=== PATIENT | female | born 1995 | race African-American/Black ===

== ENCOUNTER 2025-03-16 20:08 | Emergency (ER) | payer BC, SELFPAY ==
[2025-03-16 20:14] VITALS: BP 130/90
[2025-03-16 20:38] VITALS: BMI 32.1
[2025-03-16 20:50] VITALS: BP 132/94
[2025-03-16 21:00] VITALS: BP 136/93
[2025-03-16 21:05] LABS: Hematocrit 40.4 % (37.0-47.0); Hemoglobin 13.7 g/dL (12.0-16.0); Mean Corp Hgb Conc. 33.9 g/dL (33.0-37.0); Mean Corpuscular Volume 89.0 fL (81.0-99.0); Nucleated Red Blood Cells % 0 %; Platelet Count 318 10^3/uL (130-400); Red Cell Dist. Width 13.8 % (11.5-14.5)
[2025-03-16 21:19] LABS: HCG, Serum Qualitative Screen Negative
[2025-03-16 21:30] LABS: ALT (SGPT) 31 U/L (0-35); AST (SGOT) 20 U/L (14-36); Albumin 4.9 g/dl (3.5-5.0); Alkaline Phosphatase 49 U/L (38-126); Blood Urea Nitrogen 15 mg/dl (7-17); Calcium 9.5 mg/dl (8.4-10.2); Carbon Dioxide 21 mmol/L (22-30); Chloride 105 mmol/L (98-107); Estimated Creatinine Clearance 111 ml/min; Glucose 115 mg/dl (70-99); Potassium 4.3 mmol/L (3.5-5.1); Sodium 137 mmol/L (135-145); Total Protein 8.1 g/dl (6.3-8.2); eGFR > 60.00
[2025-03-16] MEDS: ZOFRAN 4 MG IV (21:37)
[2025-03-16] MEDS: NSS 1000 IV (21:37)
[2025-03-16] MEDS: TORADOL 15 MG IV (21:37)
[2025-03-16 21:58] LABS: Lipase 134 U/L (23-300)
[2025-03-16 22:00] VITALS: BP 110/81
--- NOTE | 2025-03-16 22:59 | ED.GENMED ---
History of Present Illness
General
Chief Complaint: Abdominal Symptoms
Source: patient and significant other
Time Seen by Provider: 03/16/25 21:05
History of Present Illness
History of Present Illness:
Note:
CHIEF COMPLAINT(S)
Vomiting and abdominal discomfort.
HISTORY OF PRESENT ILLNESS
The patient is a 29-year-old female who presents with symptoms of vomiting and abdominal discomfort, which began earlier this week, approximately a week ago. The symptoms have worsened towards the end of the week. The patient recently started on
semaglutide (Wegovy) for the management of elevated hemoglobin A1C. She reports experiencing nausea and vomiting, typical side effects associated with semaglutide, which has persisted despite using the bathroom or vomiting. The patient describes the
pain as concentrated in the upper abdominal region. She denies alcohol consumption.
The healthcare team raised the possibility that the symptoms might be related to semaglutide, especially since side effects can occur when starting the medication or changing the dosage. There is also consideration of mild pancreatitis associated
with the medication. 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
PAST MEDICAL AND SURGICAL HISTORY
History of splenectomy.
EXTERNAL RECORDS REVIEWED
Hemoglobin A1C was noted to be elevated.
CHRONIC MEDICAL CONDITIONS SIGNIFICANTLY AFFECTING CARE
Elevated hemoglobin A1C.
PHYSICAL EXAM
General: Alert, no acute distress.
Skin: Warm, dry.
Head: Normocephalic, atraumatic.
Neck: Supple, trachea midline.
Eye Ears, nose, mouth, and throat: Oral mucosa moist.
Cardiovascular: Heart regular without murmur, normal peripheral perfusion, no edema.
Respiratory: Respirations are non-labored.
Gastrointestinal: Moderate epigastric tenderness, abdomen soft, non-tender.
Back: Normal range of motion, normal alignment.
Musculoskeletal: Normal ROM, normal strength.
Neurological: Alert and oriented to person, place, time, and situation, no focal neurological deficit observed.
Psychiatric: Cooperative, appropriate mood & affect.
PROBLEM LIST
Acute Problems:
- Vomiting and abdominal discomfort possibly related to semaglutide use
Chronic Problems:
- Elevated hemoglobin A1C
PLAN
- Investigate for possible mild pancreatitis due to semaglutide use by obtaining relevant laboratory tests, including pancreatic enzymes.
- Manage symptoms with analgesics such as morphine for pain relief as needed; monitor for effectiveness and adjust treatment if necessary.
- Administer antiemetic medication for nausea.
- Continue monitoring the patients condition and response to medications.
DIFFERENTIAL DIAGNOSIS
The Differential Diagnosis includes, in no particular order and is not limited to:
1. Medication-induced gastrointestinal upset (related to semaglutide)
2. Mild pancreatitis
3. Gastroenteritis
4. Gastritis
5. Peptic ulcer disease
6. Non-ulcer dyspepsia
7. Hepatitis
8. Biliary colic (though patient lacks gallbladder)
9. Intestinal obstruction
10. Enteritis/Colitis
Disposition:
SUMMARY OF ENCOUNTER
The patient is a 29-year-old female on semaglutide, a GLP-1 receptor agonist, who presented with upper abdominal discomfort persisting for several days. Laboratory tests conducted in the emergency department, including CBC, chemistry panel, liver
function tests, and lipase, were all normal. A test was negative. The patient has a history of cholecystectomy and appendectomy. She reported feeling somewhat better following the administration of intravenous ketorolac and intravenous
fluids. I suspect her symptoms are related to semaglutide use. After discussion, the patient expressed her decision to discontinue semaglutide due to intolerance. It was recommended that she follow up with her primary care provider (PCP).
ASSESSMENT
Symptoms are likely due to semaglutide use. The patient has decided to discontinue the medication.
EMERGENCY TREATMENTS ADMINISTERED
IV ketorolac and IV fluids were administered.
PLAN
Initiate proton pump inhibitor (PPI) therapy and sucralfate 4 times daily. Advise the patient to follow up with her primary care provider.
INDEPENDENT REVIEW OF LABS AND INTERPRETATION OF TESTS
My independent review of CBC is normal. My independent review of chemistry panel is normal. My independent review of liver function tests is normal. My independent review of lipase is normal. My independent review of the test is negative.
PATIENT EDUCATION AND COUNSELING
The patient was informed about the possible side effects of semaglutide and reasons for discontinuing it. She was counseled on the importance of following up with her primary care provider for further management.
FOLLOW-UP INSTRUCTIONS
Patient was advised to schedule a follow-up visit with her primary care provider.
MEDICATION RECONCILIATION
Initiated PPI therapy and prescribed sucralfate to be taken four times daily.
MEDICAL DECISION MAKING
- Number and Complexity of Problems Addressed: Chronic conditions affecting care include the use of a GLP-1 receptor agonist leading to possible medication-induced gastrointestinal upset. Differential diagnoses considered included medication-induced
gastrointestinal upset (related to semaglutide), mild pancreatitis, gastroenteritis, gastritis, peptic ulcer disease, non-ulcer dyspepsia, hepatitis, biliary colic, intestinal obstruction, and enteritis/colitis.
- Data:
- Category 1: Reviewed non-emergency department records. External records reviewed indicate previous elevated hemoglobin A1C.
- Category 2: My independent interpretation of laboratory tests indicated normal results.
- Category 3: Discussions conducted with the patient regarding discontinuing semaglutide and follow-up with primary care.
- Risk: Prescription medication management involving discontinuation of semaglutide and initiation of alternative therapies. Consideration of Admission/Observation: Escalation of care including admission/observation was considered given the
complexity and risk of the patients presenting complaint, exam findings, and/or underlying comorbidities. However, ultimately I feel the patient is safe for outpatient management with close follow-up. Reasoning: Work-up reassuring, does not reveal
any acute life/organ-threatening processes, patients symptoms well-controlled upon reevaluation, reexamination is reassuring, vitals are stable, patient agreeable with discharge, reliable for follow-up.
DIAGNOSIS
Drug-induced gastric irritation due to semaglutide use (ICD-10 code: T50.905A - Adverse effect of unspecified drugs/medications, initial encounter).
Phy Exam
Physical Exam
Physical Exam:
.
Course
Orders/Labs/Results
Orders:
Orders
03/16/25 20:56
Complete Blood Count/With Diff Urgent
Comprehensive Metabolic Panel Urgent
HCG, Serum Qualitative Screen Urgent
Comment: ADDON
Lipase Urgent
Comment: ADDON
03/16/25 21:03
Add On- LAB Urgent
Tests Added?: HCG Qualitative
03/16/25 21:33
0.9% Sodium Chloride 1000 ml [Nss] 1,000 ml IV BOLUS
Ketorolac [Toradol] 15 mg IV NOW STA
Ondansetron Injectable [Zofran] 4 mg IV NOW STA
03/16/25 21:45
Add On- LAB Urgent
Tests Added?: lipase
03/16/25 22:58
Pantoprazole [Protonix IV] 80 mg IV NOW STA
Sucralfate Suspension [Carafate Suspension] 1 gm PO NOW STA
Abnormal Lab Results
03/16/25
20:56
Abs Immat Gran (auto) 0.1 H 10^3/uL
(0-0.05)
Absolute Neuts (auto) 7.5 H 10^3/uL
(1.4-6.5)
Carbon Dioxide 21 L mmol/L
(22-30)
Glucose 115 H mg/dl
(70-99)
03/16/25 20:56
03/16/25 20:56
Vital Signs
Initial and Last Documented VS:
Initial Vital Signs
Temp Pulse Resp BP Pulse Ox
97.9 F 74 20 130/90 98
03/16/25 20:14 03/16/25 20:14 03/16/25 20:14 03/16/25 20:14 03/16/25 20:14
Last Documented Vital Signs
Temp Pulse Resp BP Pulse Ox
97.9 F 91 18 110/81 96
03/16/25 20:14 03/16/25 22:45 03/16/25 22:45 03/16/25 22:00 03/16/25 22:45
*Pulse Oximetry
SaO2: 96
Oxygen Mode of Delivery: Room air
Patient hypoxic: no
*Critical Care Note
Total Time (30-74mins, 75-104mins- exclusive of procedures): Not Applicable
ED Attending Note
-
Portions of this chart may have been created with voice recognition software.� Occasional wrong word or��sound alike� substitutions may have occurred due to the inherent limitations of voice recognition software.
Discharge Plan
Departure
Patient Disposition: Home (Routine Discharge)
Date of Disposition: 03/16/25
Time of Disposition: 22:59
Patient with high blood pressure during this ER visit?: No
Discharge Problem:
Abdominal pain
Instructions: Abdominal Pain
Prescriptions:
New
sucralfate 100 mg/mL suspension
1 g PO QID Qty: 400 0RF
Rx Instructions:
Take 1 hour before each meal and 1 hour before bedtime
pantoprazole [Protonix] 40 mg tablet,delayed release (DR/EC)
40 mg PO DAILY Qty: 30 0RF
Rx Instructions:
Please take 30 minutes prior to eating or drinking anything in the morning.
Referrals:
NONE,* [Family Provider, Internal Medicine]
Activity Restrictions/Additional Instructions:
Suspected side effect of Wegovy
Please drink plenty fluids and keep the diet bland. Advance diet slowly as you feel better. Please see your doctor next 3 to 5 days for follow-up and reevaluation.
Interventions
Interventions:
*Risk Screen - Suicide Last Done: 03/16/25 20:14
*General Assessment Last Done: 03/16/25 20:39
*Neglect/Abuse Screening Last Done: 03/16/25 20:14
*ED COVID-19 Vaccine History Last Done: 03/16/25 20:39
*ED Influenza Vaccine History Last Done: 03/16/25 20:39
[facility] Fall Risk Assessment Tool Last Done: 03/16/25 20:39
ST-Gmljtq-Isdnkfgnda Assessment Last Done: 03/16/25 20:41
Discharge Date and Time
Print Language: BAHRAINI
[2025-03-16 23:00] VITALS: BP 108/81
[2025-03-16] MEDS: PROTONIX IV 80 MG IV (23:15)
[2025-03-16] MEDS: CARAFATE SUSPENSION 1 GM PO (23:16)
== END 2025-03-16 23:41 | disposition home or self-care (01) ==
LOC: EMR 20:08
PROVIDERS: Student in an Organized Health Care Education/Training Program; EMERGENCY PHYSICIAN Emergency Medicine
DX: R10.9 Unspecified abdominal pain (principal); R11.2 Nausea with vomiting, unspecified; Z79.899 Other long term (current) drug therapy; Z90.81 Acquired absence of spleen
CPT/HCPCS: 99283; 96374; 96375; 96361; 80053; 83690; 84703; 85025

== ENCOUNTER 2025-03-24 12:11 | Emergency (ER) | payer BC, SELFPAY ==
[2025-03-24 12:18] VITALS: BP 125/85
[2025-03-24 12:44] LABS: Hematocrit 37.7 % (37.0-47.0); Hemoglobin 13.0 g/dL (12.0-16.0); Mean Corp Hgb Conc. 34.5 g/dL (33.0-37.0); Mean Corpuscular Volume 87.5 fL (81.0-99.0); Nucleated Red Blood Cells % 0 %; Platelet Count 294 10^3/uL (130-400); Red Cell Dist. Width 13.8 % (11.5-14.5)
[2025-03-24 12:58] LABS: ALT (SGPT) 26 U/L (0-35); AST (SGOT) 19 U/L (14-36); Albumin 4.5 g/dl (3.5-5.0); Alkaline Phosphatase 45 U/L (38-126); Blood Urea Nitrogen 17 mg/dl (7-17); Calcium 9.4 mg/dl (8.4-10.2); Carbon Dioxide 21 mmol/L (22-30); Chloride 106 mmol/L (98-107); Glucose 117 mg/dl (70-99); Lipase 223 U/L (23-300); Potassium 3.8 mmol/L (3.5-5.1); Sodium 138 mmol/L (135-145); Total Protein 7.2 g/dl (6.3-8.2); eGFR > 60.00
--- NOTE | 2025-03-24 15:54 | ED.GENMED ---
History of Present Illness
General
Chief Complaint: Abdominal Pain
Source: patient
Time Seen by Provider: 03/24/25 15:35
History of Present Illness
History of Present Illness:
Patient is a 29-year-old female presents emergency department with complaints of nausea vomiting diarrhea and abdominal pain this has been on admission for 1 week. She attributes her symptoms to her starting a Wegovy which she discontinued
understanding. She denies blood in her stool or vomiting, fever, chills, recent antibiotics, recent travel, sick contacts, chest pain, shortness of breath. Patient denies history of this in the past, she has never had an endoscopy colonoscopy.
She describes the discomfort as in the epigastric area sometimes it is associated with what she thinks appears to be mild swelling. Pain 'comes and weeks' and travels to bilateral upper quadrants. Feels better with warm compresses, no particular
exacerbating factors. Pain is typically 'dull and tolerable', but then becomes severe. She denies chest pain, dyspnea, urinary symptoms, or other complaints. Patient was seen here in the emergency department and had a workup. She returned the
emergency department because her symptoms did not.
Past History
Past History
ED Past Medical History: Other (Prediabetes)
ED Past Surgical History: Appendectomy and Cholecystectomy
Social History
Tobacco: Non-smoker
Alcohol: None
Drug: None
Personal:
Living: with family
Phy Exam
Physical Exam
Physical Exam:
GENERAL: Alert , in no apparent distress
EYE: pupils equal and reactive
NECK: Supple, no significant adenopathy.
ENT: o/p clr, mmm.
CARDIAC: Regular rate and rhythm .
LUNGS: Clear breath sounds bilaterally, no acute respiratory distress, no wheezes/rales/rhonchi
ABDOMEN: Soft, without focal tenderness, no r/g, no cvat
NEUROLOGICAL: Alert and oriented, no focal neuro deficits
SKIN: Warm and dry, skin intact.
MUSCULOSKELETAL: No edema, well perfused.
PSYCH: Normal and appropriate interaction.
Course
Orders/Labs/Results
Orders:
Orders
03/24/25 12:20
IV Insert/Care/Rem.- Treatment PRN
03/24/25 12:27
Complete Blood Count/With Diff Urgent
Comprehensive Metabolic Panel Urgent
HCG, Serum Qualitative Screen Urgent
Comment: ADD ON
Lipase Urgent
03/24/25 15:36
Test Result ONCE
03/24/25 15:46
Add On- LAB Urgent
Tests Added?: hcg, serum qualitative
03/24/25 15:52
Urinalysis Reflex To Culture Urgent
Date Specimen was Collected: 03/24/25
Time Specimen was Collected: 12:21
Urine Microscopic Reflex Cult Urgent
Urine Culture Urgent
MIHAI Source: U
Specimen Description:
Date Specimen was Collected: 03/24/25
Time Specimen was Collected: 12:21
03/24/25 15:58
US Abdomen Complete/Upper Urgent
Comment:
Reason For Exam: abd pain
Abnormal Lab Results
03/24/25 03/24/25
12:27 15:52
Carbon Dioxide 21 L mmol/L
(22-30)
Glucose 117 H mg/dl
(70-99)
Urine Ketones 1+ A
(Negative)
Urine Bacteria (Reflex) Moderate A
(Negative)
Urine Albumin (Reflex) 2+ A
(Neg - Trace)
03/24/25 12:27
03/24/25 12:27
Vital Signs
Initial and Last Documented VS:
Initial Vital Signs
Temp Pulse Resp BP Pulse Ox
98.3 F 97 19 125/85 97
03/24/25 12:18 03/24/25 12:18 03/24/25 12:18 03/24/25 12:18 03/24/25 12:18
Last Documented Vital Signs
Temp Pulse Resp BP Pulse Ox
98.1 F 98 18 102/75 99
03/24/25 17:55 03/24/25 17:55 03/24/25 17:55 03/24/25 17:55 03/24/25 17:55
*Pulse Oximetry
SaO2: 97
Oxygen Mode of Delivery: Room air
Patient hypoxic: no
*Critical Care Note
Total Time (30-74mins, 75-104mins- exclusive of procedures): Not Applicable
Update Note
Update Note:
Patient presents to the Emergency Department with __abdominal pain nausea vomiting diarrhea
Number and Complexity of Problems Addressed at the Encounter
� Chronic conditions affecting care:
� Acute Exacerbation and/or Progression of Chronic Illness:
� Differential Diagnosis includes: But not limited to medication reaction, infectious etiology, IBS, bowel obstruction, retained stone, 'CHS, CVS, etc. etc.
Amount and/or Complexity of Data to be Reviewed and Analyzed
� I performed an independent evaluation of and my interpretation is:
EKG:
CT:
Xrays:
Laboratory Studies: Unremarkable including lipase and LFTs making retained stone and/or pancreatitis extremely unlikely. White blood cell count normal.
Other:us Prior cholecystectomy without evidence of biliary duct dilation.
The liver appears mildly echogenic suggestive of mild hepatic steatosis
� Review of other/old records reveals:
� Clinical information was obtained by an independent historian:
� Prescriptions/Medications Considered but not given:
� Further testing considered but not performed:
Risk of Complications and/or Morbidity or Mortality of Patient Management
� Social determinants of health affecting care:
� Discussion with other providers (PCP, Hospitalists, Consultants, etc):
� Escalation of care including admission/observation vs risk of discharge considered: Patient has to provide stool sample but she has not been able to do so. Giving her something to drink which she thinks may provoke a stool
sample. She has associated chest pain. well-appearing. Labs unremarkable, urine and hCG pending although hCG was negative days ago. Ultrasound pending.
6:30 PM multiple reassessments, patient unable to give a bowel movement here, tolerating fluids, no new symptoms, nontoxic, abdomen soft and nontender. Clinically highly doubt a bowel obstruction given lack of distention, hyperactive bowel sounds,
etc. May still be related to food be versus other GI etiology such etc. Return
ED Attending Note
-
Portions of this chart may have been created with voice recognition software.� Occasional wrong word or��sound alike� substitutions may have occurred due to the inherent limitations of voice recognition software.
Discharge Plan
Departure
Patient Disposition: Home (Routine Discharge)
Date of Disposition: 03/24/25
Time of Disposition: 18:38
Patient with high blood pressure during this ER visit?: Yes
Condition: Good
Discharge Problem:
Abdominal pain
Instructions: Diarrhea in teens and adults, Nausea and Vomiting, Adult (DC), Abdominal Pain, BLOOD PRESSURE
Prescriptions:
No Action
sucralfate 100 mg/mL suspension
1 g PO QID Qty: 400 0RF
Rx Instructions:
Take 1 hour before each meal and 1 hour before bedtime
pantoprazole [Protonix] 40 mg tablet,delayed release (DR/EC)
40 mg PO DAILY Qty: 30 0RF
Rx Instructions:
Please take 30 minutes prior to eating or drinking anything in the morning.
Referrals:
Mohinder Miguel MD [Active, Gastroenterology] - Next open appointment
Cherelle Amador MD [Family Provider, Internal Medicine]
Activity Restrictions/Additional Instructions:
IF YOU DEVELOP WORSENING/NEW PAIN, FEVER, BLEEDING, OR OTHER WORRISOME SIGNS, PLEASE RETURN TO THE EMERGENCY DEPARTMENT IMMEDIATELY!
Interventions
Interventions:
*General Assessment Last Done: 03/24/25 12:18
*Neglect/Abuse Screening Last Done: 03/24/25 12:18
*Risk Screen - Suicide (C-SSRS) Last Done: 03/24/25 12:18
*Nursing Disposition Last Done: 03/24/25 18:57
YR-Wyysos-Lrmxqeasyx Assessment Last Done: 03/24/25 16:58
Discharge Date and Time
Discharge Date/Time: 03/24/25 18:57
Print Language: BELIZEAN
[2025-03-24 16:03] LABS: Urine Character Clear (Clear)
[2025-03-24 16:14] LABS: Urine Squamous Cell 0-2 /LPF (Few)
[2025-03-24 16:15] LABS: Urine Red Blood Cell 0-2 /HPF (0-2); Urine White Cell 0-2 /HPF (0-5)
[2025-03-24 16:18] LABS: HCG, Serum Qualitative Screen Negative
[2025-03-24 17:55] VITALS: BP 102/75
== END 2025-03-24 18:57 | disposition home or self-care (01) ==
LOC: EMR 12:11
PROVIDERS: Emergency Medicine; EMERGENCY PHYSICIAN Emergency Medicine; FAMILY PHYSICIAN Internal Medicine
DX: R10.9 Unspecified abdominal pain (principal); R11.2 Nausea with vomiting, unspecified; Z90.49 Acquired absence of other specified parts of digestive tract
CPT/HCPCS: 99284; 76700; 80053; 81003; 81015; 83690; 84703; 85025; 87086